=== PATIENT | female | born 1995 | race Hispanic/Latino ===

== ENCOUNTER 2020-12-12 07:58 | Outpatient (CLI) | payer MEDICAID, SELFPAY ==
--- NOTE | ~2020-12-12 | US_ITS ---
EXAMINATION: US OB <= 14 weeks fetus DATE: 12/12/2020 08:57 INDICATION: Routine care during first trimester . TECHNIQUE: Real-time pelvic ultrasound utilizing both a transvaginal and transabdominal probe was pe rformed. The interpreting radiologist was not present for the study. COMPARISON: None. FINDINGS: The uterus measures 10.1 x 9.1 x 6.6 cm. There is an intrauterine gestational sac. A yolk sac and fe malik pole are identified. The crown rump length measures 3.9 cm, which correlates with an estimated ge stational age of 10 weeks and 5 days. heart motion is identified measuring 157 beats per minute (bpm) by M-mode Doppler. The right ovary is not visualized The left ovary measures 1.9 x 2.2 x 1.2 cm with internal vascular f low on color Doppler. There is no free fluid in the pelvis. IMPRESSION: 1. Single living fetus with heart rate of 157 bpm. 2. Gestational age by ultrasound of 10 weeks 5 day(s) +/- 7 day(s) with ultrasound estimated date of delivery (CARLEY) of 07/05/2021. Reviewed, dictated and finalized at location A. IMPRESSION: 1. Single living fetus with heart rate of 157 bpm. 2. Gestational age by ultrasound of 10 weeks 5 day(s) +/- 7 day(s) with ultras ound estimated date of delivery (CARLEY) of 07/05/2021.
== END 2020-12-12 07:59 | disposition home or self-care (01) ==
PROVIDERS: PCP Obstetrics & Gynecology; Visit Provider Obstetrics & Gynecology
DX: Z34.90 Encounter for supervision of normal pregnancy, unspecified, unspecified trimester (principal); Z3A.10 10 weeks gestation of pregnancy
CPT/HCPCS: 76801

== ENCOUNTER 2021-02-06 10:07 | Outpatient (CLI) | payer BC, SELFPAY ==
--- NOTE | ~2021-02-06 | US_ITS ---
EXAMINATION: US OB follow up DATE: 02/06/2021 10:59 INDICATION: Routine care during second trimester TECHNIQUE: Real-time ultrasound of the pelvis was performed. The interpreting radiologist was not pre sent for the study. COMPARISON: 12/12/2020 FINDINGS: There is a single living fetus in breech presentation. The placenta is anterior with caudal margin 4 .5 cm from the internal cervical os. heart rate is 155 beats per minute (bpm). The amniotic flu id index is 14.1 cm, which is normal (5th%-95%: 9.0-20.7 cm at 22 weeks estimated gestational age). The following biometric data were obtained: BPD: 4.1 cm -> 18 weeks 3 days Head circumference: 15.8 cm -> 18 weeks 5 days Abdominal circumference: 13.8 cm -> 19 weeks 1 days Femur length: 3.2 cm -> 20 weeks 0 days These measurements are concordant. Head circumference to abdominal circumference ratio: 1.14 (normal range 1.09-1.26). Estimated weight: 293 g (+/-) 44 g or 10 oz. (+/-) 2 oz. IMPRESSION: 1. Single living fetus in breech presentation with heart rate of 155 bpm. 2. Normal amniotic fluid index of 14.1 cm. 3. Estimated weight is 46th percentile by Hadlock criteria when 06/30/2021 as provided is used a s the estimated date of delivery (CARLEY). Of note the CARLEY based upon earliest ultrasound at this [facility] performed 12/12/2020 was 07/05/2021. Please correlate with clinical information or earlier ultras ounds for most accurate CARLEY. Reviewed, dictated and finalized at location B. IMPRESSION: 1. Single living fetus in breech presentation with heart rate of 155 bpm. 2. Normal amniotic fluid index of 14.1 cm. 3. Estimated weight is 46th percentile by Hadlock criteria when 06/30/2021 as provided is used as the estimated date of delivery (CARLEY). Of note the CARLEY b ased upon earliest ultrasound at this institution performed 12/12/2020 was 2021. Please correlate with clinical information or earlier ultrasounds for mos t accurate CARLEY.
== END 2021-02-06 10:08 | disposition home or self-care (01) ==
PROVIDERS: PCP Obstetrics & Gynecology; Visit Provider Obstetrics & Gynecology
DX: Z36.89 Encounter for other specified antenatal screening (principal); Z3A.22 22 weeks gestation of pregnancy; O32.1XX0 Maternal care for breech presentation, not applicable or unspecified
CPT/HCPCS: 76816

== ENCOUNTER 2021-03-27 10:20 | Outpatient (CLI) | payer BC, SELFPAY ==
--- NOTE | ~2021-03-27 | US_ITS ---
EXAMINATION: US OB follow up DATE: 03/27/2021 10:56 INDICATION: Routine care. TECHNIQUE: Real-time ultrasound of the pelvis was performed. COMPARISON: Ultrasound 02/06/2021, 12/12/2020 FINDINGS: There is a single living fetus in transverse lie with head to the mother's right. The placenta is an terior. heart rate is 159 beats per minute (bpm). The amniotic fluid index is 12.1 cm, which is normal. The following biometric data were obtained: Biparietal diameter (BPD): 6.2 cm; head circumference (HC): 23.5 cm; abdominal circumference (AC): 21 .2 cm; femur length (FL): 4.8 cm. These measurements are concordant. Estimated weight is 853 g +/- 128 g, which correlates with 17th percentile when 06/30/21 is used as estimated date of delivery. As single measurements, these parameters are each equal to the following estimated gestational ages: BPD: 25 weeks 2 days. HC: 25 weeks 3 days. AC: 25 weeks 5 days. FL: 26 weeks 1 days. estimated gestational age based solely on measurements from this exam is 25 weeks 5 days +/- 1 weeks 6 days. IMPRESSION: 1. Single living fetus in transverse lie. 2. Estimated weight is 853 g +/- 128 g, which correlates with 17th percentile when 06/30/21 is used as estimated date of delivery. Note that the ultrasound from 12/12/2020 demonstrated an estimated date of delivery of 07/05/2021. Reviewed, dictated and finalized at location A. IMPRESSION: 1. Single living fetus in transverse lie. 2. Estimated weight is 853 g +/- 128 g, which correlates with 17th perce ntile when 06/30/21 is used as estimated date of delivery. Note that the ultraso und from 12/12/2020 demonstrated an estimated date of delivery of 07/05/2021.
== END 2021-03-27 10:21 | disposition home or self-care (01) ==
LOC: ANHIMG 10:23
PROVIDERS: PCP Obstetrics & Gynecology; Visit Provider Obstetrics & Gynecology
DX: Z34.92 Encounter for supervision of normal pregnancy, unspecified, second trimester (principal); Z3A.25 25 weeks gestation of pregnancy
CPT/HCPCS: 76816